=== PATIENT | female | born 1935 | race Caucasian/White ===

== ENCOUNTER 2016-09-06 07:43 | Inpatient (IN) | payer OTHER ==
[~2016-09-06] VITALS: Ht 162.6 cm; Wt 83.2 kg
[~2016-09-06 07:43] MED LIST: AMIO200T42 PO; ASPI-496 PO; ATOR20TA9 PO; B.AN1CAP PO; CEFD300C37 PO; CHOL500014 PO; CLOP75TA22 PO; FAMO20TA7 PO; INSU100V SC; INSU100V5 SQ-INSULIN; INSU100V8 SQ; LISI1TAB5 PO; RANI150T4 PO; SERT100T5 PO
[2016-09-06] MEDS ORDERED: INSU100I11 SC (08:43)
[2016-09-06] MEDS ORDERED: ONDANSETRON 2MG/ML, 2ML ONE (09:14)
[2016-09-06] MEDS ORDERED: MECLIZINE CHEWABLE 25 MG TAB ONE (09:14)
[2016-09-06] MEDS ORDERED: ASPIRIN 81 MG TABLET CHEW ONE (09:14)
[2016-09-06] MEDS ORDERED: MECLIZINE CHEWABLE 25 MG TAB PO ONE (09:30)
[2016-09-06] MEDS ORDERED: SODIUM CHLORIDE FLUSH 10ML SYR IVF ONE (09:30)
[2016-09-06] MEDS ORDERED: ONDANSETRON 2MG/ML, 2ML IVPush ONE (09:30)
[2016-09-06] MEDS ORDERED: SODIUM CHLORIDE 0.9% 1,000ML IVBOLUS ONE (09:30)
[2016-09-06] MEDS ORDERED: ASPIRIN 325 MG TABLET PO SCH (10:00)
[2016-09-06 10:47] LABS: ASPARTATE AMINO TRANSFERASE 13 U/L (15-37); BLOOD UREA NITROGEN 26 mg/dL (7-18)
[2016-09-06 10:58] LABS: IS PT STATUS REG ER OR PRE ER? YES
[2016-09-06] MEDS ORDERED: GADOBUTROL 7.5 MMOL/7.5 ML PFS ONE (13:26)
[2016-09-06 14:13] VITALS: BP 182/74
[2016-09-06] MEDS ORDERED: SODIUM CHLORIDE 0.9% 1,000 ML IV SCH (14:31)
[2016-09-06] MEDS ORDERED: POLYETHYLENE GLYCOL 17 GM PACKET PO PRN (15:00)
[2016-09-06] MEDS ORDERED: ONDANSETRON 2MG/ML, 2ML IVP PRN (15:00)
[2016-09-06] MEDS ORDERED: DOCUSATE 100 MG CAPSULE PO PRN (15:00)
[2016-09-06] MEDS ORDERED: MORPHINE SULFATE 4 MG/ML, 1ML IVPush PRN (15:00)
[2016-09-06] MEDS ORDERED: HYDROcodone/APAP 5/325 TABLET PO PRN (15:00)
[2016-09-06] MEDS ORDERED: ENALAPRILAT 1.25 MG/ML, 2ML IV PRN (15:00)
[2016-09-06 16:00] VITALS: BP 150/70
[2016-09-06] MEDS: INSULIN REGULAR 100 UNITS/ML, 3ML VIAL SQ-INSULIN SCH ×2 (17:13→22:27)
[2016-09-06 20:46] VITALS: BP 117/66
[2016-09-06] MEDS: INSULIN DETEMIR 100 UNITS/ML, PEN SQ-INSULIN SCH ×2 (21:00→22:26)
[2016-09-06] MEDS: ATORVASTATIN 20 MG TABLET PO SCH (21:13)
[2016-09-07 02:29] VITALS: BP 126/55
[2016-09-07 05:04] LABS: BLOOD UREA NITROGEN 31 mg/dL (7-18)
[2016-09-07 07:52] VITALS: BP 158/52
[2016-09-07] MEDS: INSULIN REGULAR 100 UNITS/ML, 3ML VIAL SQ-INSULIN SCH ×4 (08:29→21:21)
[2016-09-07] MEDS: FAMOTIDINE 20 MG TABLET PO SCH (08:30)
[2016-09-07] MEDS: CLOPIDOGREL 75 MG TABLET PO SCH (08:30)
[2016-09-07] MEDS: LACTOBACILLUS CHEW TABLET PO SCH (08:31)
[2016-09-07] MEDS: SENNA/DOCUSATE TABLET PO SCH (08:31)
[2016-09-07] MEDS: SERTRALINE 100MG TABLET PO SCH (08:31)
[2016-09-07] MEDS: ACETAMINOPHEN 325 MG TABLET PO PRN (08:39)
[2016-09-07] MEDS ORDERED: AMIODARONE 200 MG TABLET PO SCH (09:00)
[2016-09-07 14:00] VITALS: BP 163/68
[2016-09-07 21:06] VITALS: BP 169/67
[2016-09-07] MEDS: ATORVASTATIN 20 MG TABLET PO SCH (21:21)
[2016-09-07] MEDS: INSULIN DETEMIR 100 UNITS/ML, PEN SQ-INSULIN SCH (21:21)
[2016-09-08] VITALS (11 sets, daily range): BP systolic 152–201; BP diastolic 51–77
[2016-09-08] MEDS: INSULIN REGULAR 100 UNITS/ML, 3ML VIAL SQ-INSULIN SCH ×4 (07:25→20:11)
[2016-09-08] MEDS: hydrALAzine 20 MG/ML, 1ML IV PRN ×4 (08:25→22:22)
[2016-09-08] MEDS: LACTOBACILLUS CHEW TABLET PO SCH (08:26)
[2016-09-08] MEDS: SENNA/DOCUSATE TABLET PO SCH (08:26)
[2016-09-08] MEDS: FAMOTIDINE 20 MG TABLET PO SCH (08:26)
[2016-09-08] MEDS: CLOPIDOGREL 75 MG TABLET PO SCH (08:26)
[2016-09-08] MEDS: SERTRALINE 100MG TABLET PO SCH (08:26)
[2016-09-08] MEDS: LISINOPRIL 20 MG TABLET PO SCH (11:42)
[2016-09-08] MEDS: ATORVASTATIN 20 MG TABLET PO SCH (20:09)
[2016-09-08] MEDS: INSULIN DETEMIR 100 UNITS/ML, PEN SQ-INSULIN SCH (20:11)
[2016-09-09] VITALS (9 sets, daily range): BP systolic 149–192; BP diastolic 62–73
[2016-09-09] MEDS: ACETAMINOPHEN 325 MG TABLET PO PRN (01:19)
[2016-09-09] MEDS: INSULIN REGULAR 100 UNITS/ML, 3ML VIAL SQ-INSULIN SCH ×4 (07:00→21:00)
[2016-09-09] MEDS: LACTOBACILLUS CHEW TABLET PO SCH (08:49)
[2016-09-09] MEDS: CLOPIDOGREL 75 MG TABLET PO SCH (08:49)
[2016-09-09] MEDS: LISINOPRIL 20 MG TABLET PO SCH (08:49)
[2016-09-09] MEDS: FAMOTIDINE 20 MG TABLET PO SCH (08:49)
[2016-09-09] MEDS: SENNA/DOCUSATE TABLET PO SCH (08:49)
[2016-09-09] MEDS: SERTRALINE 100MG TABLET PO SCH (08:49)
[2016-09-09] MEDS: ENOXAPARIN 40 MG/0.4 ML SQ SCH (16:43)
[2016-09-09] MEDS: ATORVASTATIN 20 MG TABLET PO SCH (21:58)
[2016-09-09] MEDS: INSULIN DETEMIR 100 UNITS/ML, PEN SQ-INSULIN SCH (22:02)
[2016-09-10] VITALS (8 sets, daily range): BP systolic 132–187; BP diastolic 65–80
[2016-09-10] MEDS: hydrALAzine 20 MG/ML, 1ML IV PRN (01:27)
[2016-09-10 07:02] LABS: BLOOD UREA NITROGEN 27 mg/dL (7-18)
[2016-09-10 07:48] LABS: ANISOCYTOSIS 1+
[2016-09-10 07:49] LABS: ACANTHOCYTES 1+; HYPOCHROMIA 1+; LARGE PLATELETS 1+; OVALOCYTES 1+; TARGET CELLS 1+
[2016-09-10] MEDS: INSULIN REGULAR 100 UNITS/ML, 3ML VIAL SQ-INSULIN SCH ×4 (07:55→21:00)
[2016-09-10] MEDS: FAMOTIDINE 20 MG TABLET PO SCH (07:56)
[2016-09-10] MEDS: SENNA/DOCUSATE TABLET PO SCH (07:57)
[2016-09-10] MEDS: SERTRALINE 100MG TABLET PO SCH (07:57)
[2016-09-10] MEDS: LISINOPRIL 20 MG TABLET PO SCH ×2 (07:57→22:09)
[2016-09-10] MEDS: CLOPIDOGREL 75 MG TABLET PO SCH (07:57)
[2016-09-10] MEDS: LACTOBACILLUS CHEW TABLET PO SCH (07:57)
[2016-09-10 09:10] LABS: TOTAL IRON BINDING CAPACITY 391 mcg/dL (250-450)
[2016-09-10] MEDS: ENOXAPARIN 40 MG/0.4 ML SQ SCH (16:24)
[2016-09-10] MEDS: ACETAMINOPHEN 325 MG TABLET PO PRN (16:56)
[2016-09-10] MEDS: ATORVASTATIN 20 MG TABLET PO SCH (22:08)
[2016-09-10] MEDS: INSULIN DETEMIR 100 UNITS/ML, PEN SQ-INSULIN SCH (22:08)
[2016-09-11 01:51] VITALS: BP 157/54
[2016-09-11] MEDS: INSULIN REGULAR 100 UNITS/ML, 3ML VIAL SQ-INSULIN SCH (07:00)
[2016-09-11 07:28] VITALS: BP 126/70
[2016-09-11] MEDS ORDERED: HYDR-3341 PO (08:24)
[2016-09-11] MEDS ORDERED: LISI-170 PO (08:30)
[2016-09-11] MEDS: LISINOPRIL 20 MG TABLET PO SCH (08:48)
[2016-09-11] MEDS: SERTRALINE 100MG TABLET PO SCH (08:49)
[2016-09-11] MEDS: CLOPIDOGREL 75 MG TABLET PO SCH (08:49)
[2016-09-11] MEDS: LACTOBACILLUS CHEW TABLET PO SCH (08:49)
[2016-09-11] MEDS: FAMOTIDINE 20 MG TABLET PO SCH (08:49)
[2016-09-11] MEDS: SENNA/DOCUSATE TABLET PO SCH (08:50)
[2016-09-11] MEDS ORDERED: INSU100C5 SQ-INSULIN (11:51)
== END 2016-09-11 11:40 | disposition home health service (06) | DRG 92 ==
LOC: ED 09:45 → EDIP 11:48 → 5SO 14:33 → DCLOUNGE 09-11 11:10
PROVIDERS: ADMIT Hospitalist; ATTEND Family Medicine
DX: R27.0 Ataxia, unspecified (principal); I16.1 Hypertensive emergency; D68.69 Other thrombophilia; I16.0 Hypertensive urgency; G51.0 Bell's palsy; D50.9 Iron deficiency anemia, unspecified; E11.22 Type 2 diabetes mellitus with diabetic chronic kidney disease; E11.649 Type 2 diabetes mellitus with hypoglycemia without coma; E78.5 Hyperlipidemia, unspecified; I08.1 Rheumatic disorders of both mitral and tricuspid valves; R00.1 Bradycardia, unspecified; I27.2 Other secondary pulmonary hypertension; I48.0 Paroxysmal atrial fibrillation; I13.10 Hypertensive heart and chronic kidney disease without heart failure, with stage 1 through stage 4 chronic kidney disease, or unspecified chronic kidney disease; N18.3 Chronic kidney disease, stage 3 (moderate); Z66 Do not resuscitate; Z86.19 Personal history of other infectious and parasitic diseases
CPT/HCPCS: 36415; 70450; 70553; 71010; 80048; 80053; 81003; 82962; 83540; 83550; 83605; 84443; 84484; 85025; 87040; 93005; 93306; 96361; 96374; A9585; J1650; J1815; J2405; J0360; J7030

== ENCOUNTER 2016-10-09 09:48 | Emergency (ER) | payer OTHER ==
[~2016-10-09 09:48] MED LIST changes: +HYDR-3341 PO; +INSU100C5 SQ-INSULIN; +INSU100I11 SC; +LISI-170 PO
[2016-10-09] MEDS ORDERED: ONDANSETRON 2MG/ML, 2ML ONE (10:23)
[2016-10-09] MEDS ORDERED: MORPHINE SULFATE 4 MG/ML, 1ML ONE (10:23)
== END 2016-10-09 13:42 ==
LOC: ED 09:48
DX: S39.012A Strain of muscle, fascia and tendon of lower back, initial encounter (principal); M51.36 Other intervertebral disc degeneration, lumbar region; G51.0 Bell's palsy; E11.9 Type 2 diabetes mellitus without complications; I10 Essential (primary) hypertension; Z86.73 Personal history of transient ischemic attack (TIA), and cerebral infarction without residual deficits; X50.1XXA Overexertion from prolonged static or awkward postures, initial encounter; Y93.89 Activity, other specified; Y99.8 Other external cause status; Y92.89 Other specified places as the place of occurrence of the external cause
CPT/HCPCS: 72110; 99284

== ENCOUNTER 2017-01-15 18:20 | Emergency (ER) | payer OTHER ==
[~2017-01-15] VITALS: Ht 162.6 cm; Wt 80.0 kg
[~2017-01-15 18:20] MED LIST changes: -CHOL500014 PO; +CHOL500045 PO; -CLOP75TA22 PO; +CLOP75TA52 PO
[2017-01-15] MEDS ORDERED: SODIUM CHLORIDE 0.9% 1,000ML IVBOLUS ONE (19:00)
[2017-01-15] MEDS ORDERED: SODIUM CHLORIDE FLUSH 10ML SYR IVF ONE (19:00)
[2017-01-15] MEDS ORDERED: ONDANSETRON 2MG/ML, 2ML IVPush ONE (19:00)
[2017-01-15] MEDS ORDERED: ONDANSETRON 2MG/ML, 2ML ONE (19:23)
[2017-01-15] MEDS ORDERED: MORPHINE SULFATE 4 MG/ML, 1ML ONE ×2 (19:23→20:22)
[2017-01-15] MEDS: MORPHINE SULFATE 4 MG/ML, 1ML IVPush PRN ×2 (19:27→20:24)
[2017-01-15 19:37] LABS: BLOOD UREA NITROGEN 33 mg/dL (7-18)
[2017-01-15 19:41] LABS: HEMATOCRIT 26.3 % (34.6-47.8); HEMOGLOBIN 8.5 g/dL (11.7-16.4); WHITE BLOOD COUNT 7.7 x10^3/uL (3.4-10)
[2017-01-15 19:42] LABS: DIFF TOTAL CELLS COUNTED 100 CELL DIFF
[2017-01-15 20:11] LABS: ANISOCYTOSIS 2+; HYPOCHROMIA 1+; MICROCYTOSIS 1+
[2017-01-15 20:13] LABS: ACANTHOCYTES 1+; OVALOCYTES 2+
[2017-01-15 20:15] LABS: VERIFY COUNTS? YES
[2017-01-15 21:39] VITALS: BP 153/75
== END 2017-01-15 21:42 | disposition home or self-care (01) ==
LOC: ED 21:36
DX: S02.31XA Fracture of orbital floor, right side, initial encounter for closed fracture (principal); S00.11XA Contusion of right eyelid and periocular area, initial encounter; S00.83XA Contusion of other part of head, initial encounter; S69.91XA Unspecified injury of right wrist, hand and finger(s), initial encounter; G89.11 Acute pain due to trauma; E78.5 Hyperlipidemia, unspecified; E11.9 Type 2 diabetes mellitus without complications; I10 Essential (primary) hypertension; Z79.02 Long term (current) use of antithrombotics/antiplatelets; Z90.49 Acquired absence of other specified parts of digestive tract; W20.8XXA Other cause of strike by thrown, projected or falling object, initial encounter; Y93.89 Activity, other specified; Y92.096 Garden or yard of other non-institutional residence as the place of occurrence of the external cause; Y99.8 Other external cause status
CPT/HCPCS: 36415; 70450; 70486; 71101; 72125; 73030; 73110; 73130; 80048; 82040; 85025; 85610; 85730; 96361; 96374; 96375; 96376; 99285; J2405; J7030

== ENCOUNTER → 2017-01-17 | Outpatient (CLI) | payer OTHER | END | disposition home or self-care (01) | LOC: RAD 14:34 | PROVIDERS: ATTEND Family Medicine | DX: S06.9X9A Unspecified intracranial injury with loss of consciousness of unspecified duration, initial encounter (principal); M85.841 Other specified disorders of bone density and structure, right hand; J32.0 Chronic maxillary sinusitis; M19.031 Primary osteoarthritis, right wrist; M19.041 Primary osteoarthritis, right hand; I70.0 Atherosclerosis of aorta; X58.XXXA Exposure to other specified factors, initial encounter; Y93.89 Activity, other specified; Y92.89 Other specified places as the place of occurrence of the external cause; Y99.8 Other external cause status | CPT/HCPCS: 70450 ==

== ENCOUNTER 2017-08-12 18:42 | Emergency (ER) | payer OTHER ==
[~2017-08-12] VITALS: Ht 162.6 cm; Wt 73.0 kg
[2017-08-12 18:44] VITALS: BP 203/70
[2017-08-12] MEDS ORDERED: INSU100V8 SQ (19:20)
[2017-08-12] MEDS ORDERED: AMIO200T42 PO (19:20)
[2017-08-12] MEDS ORDERED: INSU100C SQ-INSULIN (19:20)
[2017-08-12] MEDS ORDERED: LISI1TAB5 PO (19:20)
[2017-08-12] MEDS ORDERED: HYDROcodone/APAP 5/325 TABLET PO ONE (21:30)
[2017-08-12] MEDS ORDERED: ONDANSETRON ODT 4 MG PO ONE (21:30)
== END 2017-08-12 21:38 | disposition home or self-care (01) ==
LOC: ED 21:32
DX: S06.0X9A Concussion with loss of consciousness of unspecified duration, initial encounter (principal); E11.9 Type 2 diabetes mellitus without complications; E78.5 Hyperlipidemia, unspecified; I10 Essential (primary) hypertension; M25.511 Pain in right shoulder; M25.561 Pain in right knee; M79.662 Pain in left lower leg; W01.198A Fall on same level from slipping, tripping and stumbling with subsequent striking against other object, initial encounter; Y93.01 Activity, walking, marching and hiking; Y92.098 Other place in other non-institutional residence as the place of occurrence of the external cause; Y99.8 Other external cause status; D68.9 Coagulation defect, unspecified; Z86.73 Personal history of transient ischemic attack (TIA), and cerebral infarction without residual deficits; Z90.49 Acquired absence of other specified parts of digestive tract; Z79.02 Long term (current) use of antithrombotics/antiplatelets
CPT/HCPCS: 70450; 72125; 99284

== ENCOUNTER → 2017-08-19 | Outpatient (CLI) | payer OTHER ==
[~2017-08-19] MED LIST changes: +INSU100C SQ-INSULIN
== END | disposition home or self-care (01) ==
LOC: RAD 16:10
PROVIDERS: ATTEND Family Medicine
DX: S09.90XD Unspecified injury of head, subsequent encounter (principal); R41.0 Disorientation, unspecified; X58.XXXD Exposure to other specified factors, subsequent encounter
CPT/HCPCS: 70450

== ENCOUNTER 2017-08-24 21:53 | Inpatient (IN) | payer OTHER ==
[~2017-08-24] VITALS: Ht 162.6 cm; Wt 85.8 kg
[2017-08-24] MEDS ORDERED: MELO15TA24 PO (22:23)
[2017-08-24] MEDS ORDERED: SULF1TAB24 PO (22:23)
[2017-08-24] MEDS ORDERED: ACETAMINOPHEN 500 MG TABLET PO ONE (22:30)
[2017-08-24] MEDS ORDERED: ACETAMINOPHEN 500 MG TABLET ONE (22:47)
[2017-08-24 23:28] LABS: BASOPHILS # (AUTO) 0.03 x10^3/uL (0-0.1); BASOPHILS % (AUTO) 0 % (0-1); EOSINOPHILS % (AUTO) 3 % (1-7); LYMPHOCYTES # (AUTO) 1.05 x10^3/uL (1-3.4); LYMPHOCYTES % (AUTO) 13 % (22-44); MD NO; MEAN CORPUSCULAR HEMOGLOBIN 28.3 pg (27.0-34.8); MEAN CORPUSCULAR HGB CONC 32.6 g/dL (32.4-35.8); MEAN CORPUSCULAR VOLUME 86.7 fL (80-100); MEAN PLATELET VOLUME 7.5 fL (7.4-10.4); MONOCYTES % (AUTO) 7 % (2-9); NEUTROPHILS # (AUTO) 6.19 x10^3/uL (1.8-6.8); NEUTROPHILS % (AUTO) 77 % (42-75); PLATELET COUNT 282 x10^3/uL (130-400); RED BLOOD COUNT 3.91 x10^6/uL (3.82-5.3); RED CELL DISTRIBUTION WIDTH 17.9 % (9.6-15.2)
[2017-08-24 23:36] LABS: ALBUMIN 3.4 g/dL (3.4-5.0); ANION GAP 6 mmol/L (5-15); CALCIUM 8.4 mg/dL (8.5-10.1); CHLORIDE 112 mmol/L (98-107)
[2017-08-24 23:37] LABS: CREATININE 1.75 mg/dL (0.55-1.02)
[2017-08-25] MEDS ORDERED: MORPHINE SULFATE 4 MG/ML, 1ML IVPush PRN (00:30)
[2017-08-25] MEDS ORDERED: SODIUM CHLORIDE 0.9% 1,000 ML IV ONE (00:30)
[2017-08-25] MEDS ORDERED: ONDANSETRON 2MG/ML, 2ML IVPush PRN (00:30)
[2017-08-25] MEDS ORDERED: ONDANSETRON ODT 4 MG ONE (00:55)
[2017-08-25] MEDS ORDERED: MORPHINE SULFATE 4 MG/ML, 1ML ONE (00:55)
[2017-08-25] MEDS ORDERED: ACETAMINOPHEN 325 MG TABLET PO PRN (01:00)
[2017-08-25] MEDS ORDERED: BISACODYL 10 MG SUPP PR PRN (01:00)
[2017-08-25] MEDS ORDERED: POLYETHYLENE GLYCOL 17 GM PACKET PO PRN (01:00)
[2017-08-25] MEDS: ONDANSETRON ODT 4 MG PO PRN (01:09)
[2017-08-25 01:25] LABS: HEMOGLOBIN A1C 7.2 % (4.2-6.3)
[2017-08-25] MEDS: ATORVASTATIN 20 MG TABLET PO SCH ×2 (01:49→21:09)
[2017-08-25] MEDS: HEPARIN 5,000 UNITS/ML, 1ML SQ SCH ×3 (01:59→17:34)
[2017-08-25] MEDS: SODIUM CHLORIDE 0.9% 1,000 ML IV SCH ×3 (01:59→21:30)
[2017-08-25] MEDS: INSULIN GLARGINE 100 UNITS/ML, PEN SQ-INSULIN SCH ×2 (02:16→21:10)
[2017-08-25 02:18] VITALS: BP_SYST 114; BP_SYST 164; BP_DIAS 72
[2017-08-25 07:54] VITALS: BP 125/61
[2017-08-25] MEDS: SULFAMETH./TRIMETHOPRIM DS 800MG/160MG TABLET PO SCH ×2 (08:16→21:09)
[2017-08-25] MEDS: CLOPIDOGREL 75 MG TABLET PO SCH (08:18)
[2017-08-25] MEDS: AMIODARONE 200 MG TABLET PO SCH (08:18)
[2017-08-25] MEDS: SENNA/DOCUSATE TABLET PO SCH (08:18)
[2017-08-25] MEDS: AMLODIPINE 5 MG TABLET PO SCH ×2 (08:18→21:09)
[2017-08-25] MEDS: SERTRALINE 100MG TABLET PO SCH (08:18)
[2017-08-25] MEDS ORDERED: MELOXICAM 15 MG TABLET PO SCH (09:00)
[2017-08-25 09:39] LABS: ANION GAP 7 mmol/L (5-15); CALCIUM 7.9 mg/dL (8.5-10.1); CHLORIDE 113 mmol/L (98-107); CREATININE 1.71 mg/dL (0.55-1.02)
[2017-08-25] MEDS: OXYcodone IR 5MG TABLET PO PRN ×3 (09:50→21:10)
[2017-08-25] MEDS ORDERED: SODIUM POLYSTYRENE SULFONATE ORAL SUSP PO ONE (12:00)
[2017-08-25 13:00] VITALS: BP 116/64
[2017-08-25] MEDS ORDERED: PHARMACY MAY ADJ FOR RENAL FX MC PRN (15:30)
[2017-08-25 18:43] VITALS: BP 145/56
[2017-08-26] MEDS: HEPARIN 5,000 UNITS/ML, 1ML SQ SCH ×3 (01:44→16:50)
[2017-08-26] MEDS: OXYcodone IR 5MG TABLET PO PRN (01:44)
[2017-08-26 02:32] VITALS: BP 144/58
[2017-08-26 05:10] LABS: BASOPHILS # (AUTO) 0.03 x10^3/uL (0-0.1); BASOPHILS % (AUTO) 1 % (0-1); EOSINOPHILS # (AUTO) 0.21 x10^3/uL (0-0.4); EOSINOPHILS % (AUTO) 4 % (1-7); LYMPHOCYTES # (AUTO) 1.24 x10^3/uL (1-3.4); LYMPHOCYTES % (AUTO) 22 % (22-44); MD NO; MEAN CORPUSCULAR HEMOGLOBIN 29.3 pg (27.0-34.8); MEAN CORPUSCULAR HGB CONC 33.2 g/dL (32.4-35.8); MEAN CORPUSCULAR VOLUME 88.3 fL (80-100); MEAN PLATELET VOLUME 7.7 fL (7.4-10.4); MONOCYTES # (AUTO) 0.45 x10^3/uL (0.2-0.8); MONOCYTES % (AUTO) 8 % (2-9); NEUTROPHILS # (AUTO) 3.72 x10^3/uL (1.8-6.8); NEUTROPHILS % (AUTO) 66 % (42-75); PLATELET COUNT 238 x10^3/uL (130-400); RED BLOOD COUNT 3.29 x10^6/uL (3.82-5.3); RED CELL DISTRIBUTION WIDTH 18.5 % (9.6-15.2)
[2017-08-26 05:15] LABS: ALANINE AMINOTRANSFERASE 33 U/L (12-78); ALBUMIN 2.9 g/dL (3.4-5.0); ANION GAP 7 mmol/L (5-15); CALCIUM 7.5 mg/dL (8.5-10.1); CHLORIDE 115 mmol/L (98-107); CREATININE 1.63 mg/dL (0.55-1.02)
[2017-08-26 05:26] LABS: ALKALINE PHOSPHATASE 66 U/L (45-117); BILIRUBIN,TOTAL 0.4 mg/dL (0.2-1.0); TOTAL PROTEIN 5.7 g/dL (6.4-8.2)
[2017-08-26 07:22] VITALS: BP 151/65
[2017-08-26] MEDS: SENNA/DOCUSATE TABLET PO SCH (09:00)
[2017-08-26] MEDS: SULFAMETH./TRIMETHOPRIM DS 800MG/160MG TABLET PO SCH (09:16)
[2017-08-26] MEDS: SODIUM CHLORIDE 0.9% 1,000 ML IV SCH (09:16)
[2017-08-26] MEDS: SERTRALINE 100MG TABLET PO SCH (09:17)
[2017-08-26] MEDS: AMIODARONE 200 MG TABLET PO SCH (09:17)
[2017-08-26] MEDS: CLOPIDOGREL 75 MG TABLET PO SCH (09:17)
[2017-08-26] MEDS: AMLODIPINE 5 MG TABLET PO SCH ×2 (09:17→21:24)
[2017-08-26] MEDS: SODIUM CHLORIDE 0.45% 1,000 ML IV SCH (10:58)
[2017-08-26] MEDS ORDERED: DEXTROSE 4 GM TAB.CHEW PO PRN (13:00)
[2017-08-26] MEDS ORDERED: DEXTROSE 50%, 50ML SYRINGE IVPush PRN (13:00)
[2017-08-26] MEDS ORDERED: GLUCAGON 1 MG IM PRN (13:00)
[2017-08-26 13:45] VITALS: BP 131/65
[2017-08-26] MEDS: INSULIN LISPRO 100 UNITS/ML, PEN SQ-INSULIN SCH ×2 (16:00→21:00)
[2017-08-26] MEDS: ONDANSETRON ODT 4 MG PO PRN (16:50)
[2017-08-26 18:51] VITALS: BP 133/64
[2017-08-26] MEDS ORDERED: INSULIN GLARGINE 100 UNITS/ML, PEN SQ-INSULIN SCH (21:00)
[2017-08-26] MEDS: SODIUM CHLORIDE FLUSH 10ML SYR IVF SCH (21:24)
[2017-08-26] MEDS: ATORVASTATIN 20 MG TABLET PO SCH (21:25)
[2017-08-27] MEDS: SODIUM CHLORIDE 0.45% 1,000 ML IV SCH (01:06)
[2017-08-27 01:33] VITALS: BP 128/64
[2017-08-27] MEDS: HEPARIN 5,000 UNITS/ML, 1ML SQ SCH ×2 (05:03→13:00)
[2017-08-27 05:24] LABS: CHLORIDE 113 mmol/L (98-107)
[2017-08-27 05:26] LABS: BASOPHILS # (AUTO) 0.06 x10^3/uL (0-0.1); BASOPHILS % (AUTO) 1 % (0-1); EOSINOPHILS # (AUTO) 0.21 x10^3/uL (0-0.4); EOSINOPHILS % (AUTO) 3 % (1-7); LYMPHOCYTES # (AUTO) 1.48 x10^3/uL (1-3.4); LYMPHOCYTES % (AUTO) 20 % (22-44); MD NO; MEAN CORPUSCULAR HEMOGLOBIN 29.8 pg (27.0-34.8); MEAN CORPUSCULAR VOLUME 87.7 fL (80-100); MEAN PLATELET VOLUME 7.4 fL (7.4-10.4); MONOCYTES # (AUTO) 0.53 x10^3/uL (0.2-0.8); MONOCYTES % (AUTO) 7 % (2-9); NEUTROPHILS # (AUTO) 4.99 x10^3/uL (1.8-6.8); NEUTROPHILS % (AUTO) 69 % (42-75); PLATELET COUNT 248 x10^3/uL (130-400); RED BLOOD COUNT 3.53 x10^6/uL (3.82-5.3); RED CELL DISTRIBUTION WIDTH 16.7 % (9.6-15.2)
[2017-08-27 05:33] LABS: ANION GAP 8 mmol/L (5-15); CALCIUM 8.3 mg/dL (8.5-10.1); CREATININE 1.49 mg/dL (0.55-1.02)
[2017-08-27 06:26] VITALS: BP 118/50
[2017-08-27] MEDS: INSULIN LISPRO 100 UNITS/ML, PEN SQ-INSULIN SCH ×2 (07:00→11:00)
[2017-08-27] MEDS ORDERED: GABAPENTIN 100 MG CAPSULE PO SCH (09:00)
[2017-08-27] MEDS: SERTRALINE 100MG TABLET PO SCH (09:26)
[2017-08-27] MEDS: AMLODIPINE 5 MG TABLET PO SCH (09:27)
[2017-08-27] MEDS: AMIODARONE 200 MG TABLET PO SCH (09:27)
[2017-08-27] MEDS: CLOPIDOGREL 75 MG TABLET PO SCH (09:27)
[2017-08-27] MEDS: SODIUM CHLORIDE FLUSH 10ML SYR IVF SCH (09:33)
[2017-08-27] MEDS: SENNA/DOCUSATE TABLET PO SCH (09:40)
[2017-08-27] MEDS ORDERED: GABA-826 PO ×2 (09:59→12:37)
[2017-08-27] MEDS ORDERED: ACET325T14 PO (09:59)
[2017-08-27] MEDS ORDERED: AMLO5TAB2 PO ×2 (09:59→12:37)
[2017-08-27 12:32] VITALS: BP 138/49
== END 2017-08-27 14:57 | disposition home or self-care (01) | DRG 77 ==
LOC: ED 23:19 → EDIP 08-25 00:30 → 4WST 08-25 01:28 → DCLOUNGE 08-27 14:41
PROVIDERS: ADMIT Internal Medicine; ATTEND Internal Medicine
DX: I67.4 Hypertensive encephalopathy (principal); N17.0 Acute kidney failure with tubular necrosis; E87.2 Acidosis; D68.69 Other thrombophilia; E11.21 Type 2 diabetes mellitus with diabetic nephropathy; E87.5 Hyperkalemia; E11.22 Type 2 diabetes mellitus with diabetic chronic kidney disease; N18.3 Chronic kidney disease, stage 3 (moderate); G45.9 Transient cerebral ischemic attack, unspecified; I48.2 Chronic atrial fibrillation; G51.0 Bell's palsy; N28.1 Cyst of kidney, acquired; W18.39XA Other fall on same level, initial encounter; D64.9 Anemia, unspecified; W18.30XA Fall on same level, unspecified, initial encounter; Y93.89 Activity, other specified; Y92.89 Other specified places as the place of occurrence of the external cause; Y99.8 Other external cause status; E78.5 Hyperlipidemia, unspecified; I12.9 Hypertensive chronic kidney disease with stage 1 through stage 4 chronic kidney disease, or unspecified chronic kidney disease; I25.10 Atherosclerotic heart disease of native coronary artery without angina pectoris; M19.019 Primary osteoarthritis, unspecified shoulder; M50.30 Other cervical disc degeneration, unspecified cervical region; M75.100 Unspecified rotator cuff tear or rupture of unspecified shoulder, not specified as traumatic; Z79.4 Long term (current) use of insulin; Z82.3 Family history of stroke; Z83.3 Family history of diabetes mellitus; Z95.5 Presence of coronary angioplasty implant and graft; Z96.659 Presence of unspecified artificial knee joint; R29.6 Repeated falls
CPT/HCPCS: 36415; 70450; 72125; 76770; 80048; 80053; 82040; 82550; 82962; 83036; 83735; 84100; 84443; 85025; 93005; 96374; J1644; Q0162; J1815; J7030

== ENCOUNTER 2017-11-14 12:55 | Inpatient (IN) | payer OTHER ==
[~2017-11-14] VITALS: Ht 162.6 cm; Wt 76.3 kg
[~2017-11-14 12:55] MED LIST changes: +ACET325T14 PO; +AMLO5TAB2 PO; +GABA-826 PO; +MELO15TA24 PO; +SULF1TAB24 PO
[2017-11-14 14:23] LABS: BASOPHILS # (AUTO) 0.05 x10^3/uL (0-0.1); BASOPHILS % (AUTO) 1 % (0-1); EOSINOPHILS # (AUTO) 0.11 x10^3/uL (0-0.4); EOSINOPHILS % (AUTO) 2 % (1-7); LYMPHOCYTES # (AUTO) 1.12 x10^3/uL (1-3.4); LYMPHOCYTES % (AUTO) 15 % (22-44); MD NO; MEAN CORPUSCULAR HEMOGLOBIN 30.2 pg (27.0-34.8); MEAN CORPUSCULAR HGB CONC 32.8 g/dL (32.4-35.8); MEAN CORPUSCULAR VOLUME 92.3 fL (80-100); MEAN PLATELET VOLUME 7.6 fL (7.4-10.4); MONOCYTES % (AUTO) 7 % (2-9); NEUTROPHILS # (AUTO) 5.83 x10^3/uL (1.8-6.8); NEUTROPHILS % (AUTO) 77 % (42-75); PLATELET COUNT 325 x10^3/uL (130-400); RED BLOOD COUNT 3.95 x10^6/uL (3.82-5.3); RED CELL DISTRIBUTION WIDTH 14.3 % (9.6-15.2)
[2017-11-14 14:34] LABS: ALANINE AMINOTRANSFERASE 50 U/L (12-78); ALBUMIN 3.9 g/dL (3.4-5.0); ANION GAP 8 mmol/L (5-15); CALCIUM 8.4 mg/dL (8.5-10.1); CHLORIDE 110 mmol/L (98-107); CREATININE 2.19 mg/dL (0.55-1.02)
[2017-11-14 14:49] LABS: ALKALINE PHOSPHATASE 98 U/L (45-117); BILIRUBIN,TOTAL 0.2 mg/dL (0.2-1.0); TOTAL PROTEIN 7.3 g/dL (6.4-8.2)
[2017-11-14] MEDS ORDERED: SODIUM CHLORIDE 0.9% 1,000 ML IV ONE (14:52)
[2017-11-14] MEDS ORDERED: SODIUM CHLORIDE FLUSH 10ML SYR IVF ONE (15:00)
[2017-11-14] MEDS ORDERED: SODIUM CHLORIDE 0.9% 1,000ML IVBOLUS ONE (15:00)
[2017-11-14] MEDS ORDERED: SODIUM POLY SULFONATE UDC 15 GM/60 ML PO ONE (15:00)
[2017-11-14] MEDS ORDERED: INSULIN REGULAR 100 UNITS/ML, 3ML VIAL IVPush ONE (15:00)
[2017-11-14] MEDS ORDERED: DEXTROSE 50%, 50ML SYRINGE IVPush ONE ×2 (15:00→18:00)
[2017-11-14] MEDS ORDERED: CALCIUM CHLORIDE 10%, 10ML SYR IVPush ONE (15:00)
[2017-11-14] MEDS ORDERED: SODIUM BICARB 8.4%, 50ML SYRINGE IVPush ONE (15:00)
[2017-11-14] MEDS ORDERED: CALCIUM CHLORIDE 10%, 10ML SYR ONE (15:15)
[2017-11-14] MEDS ORDERED: DEXTROSE 50%, 50ML SYRINGE ONE (15:15)
[2017-11-14] MEDS ORDERED: SODIUM BICARB 8.4%, 50ML SYRINGE ONE (15:15)
[2017-11-14] MEDS ORDERED: INSULIN REGULAR 100 UNITS/ML, 3ML VIAL ONE (15:16)
[2017-11-14] MEDS ORDERED: hydrALAzine 20 MG/ML, 1ML IVPush PRN (16:00)
[2017-11-14] MEDS ORDERED: LABETALOL 5MG/ML, 20ML IVPush PRN (16:00)
[2017-11-14] MEDS ORDERED: ACETAMINOPHEN 325 MG TABLET PO PRN (16:00)
[2017-11-14] MEDS ORDERED: SODIUM POLY SULFONATE UDC 15 GM/60 ML ONE ×2 (16:18→16:21)
[2017-11-14 17:12] VITALS: BP 148/65
[2017-11-14] MEDS: SODIUM CHLORIDE 0.9% 1,000 ML IV SCH (17:26)
[2017-11-14] MEDS: HEPARIN 5,000 UNITS/ML, 1ML SQ SCH (18:29)
[2017-11-14 18:47] LABS: ANION GAP 6 mmol/L (5-15); CALCIUM 8.6 mg/dL (8.5-10.1); CHLORIDE 112 mmol/L (98-107); CREATININE 1.97 mg/dL (0.55-1.02)
[2017-11-14 19:53] VITALS: BP 142/58
[2017-11-14] MEDS ORDERED: DEXTROSE 4 GM TAB.CHEW PO PRN (22:00)
[2017-11-14] MEDS ORDERED: TEMPLATE NON-FORMULARY MED. (Gabapentin 100 MG) PO SCH (22:00)
[2017-11-14] MEDS: INSULIN GLARGINE 100 UNITS/ML, PEN SQ-INSULIN SCH (22:00)
[2017-11-14] MEDS ORDERED: DEXTROSE 50%, 50ML SYRINGE IVPush PRN (22:00)
[2017-11-14] MEDS ORDERED: GLUCAGON 1 MG IM PRN (22:00)
[2017-11-14 22:26] LABS: MICROSCOPIC NOT IND
[2017-11-14 22:38] LABS: HEMOGLOBIN A1C 6.6 % (4.2-6.3)
[2017-11-14 22:39] LABS: CULTURE INDICATED? NO
[2017-11-14 23:10] LABS: CREATININE,URINE RANDOM 29.5 mg/dL
[2017-11-15] MEDS: ATORVASTATIN 20 MG TABLET PO SCH ×2 (00:34→20:50)
[2017-11-15] MEDS: HEPARIN 5,000 UNITS/ML, 1ML SQ SCH ×3 (00:34→16:59)
[2017-11-15] MEDS: SODIUM CHLORIDE 0.9% 1,000 ML IV SCH ×2 (00:45→16:59)
[2017-11-15 01:09] VITALS: BP 151/63
[2017-11-15 05:27] LABS: CHLORIDE 116 mmol/L (98-107)
[2017-11-15 05:28] LABS: BASOPHILS # (AUTO) 0.03 x10^3/uL (0-0.1); BASOPHILS % (AUTO) 1 % (0-1); EOSINOPHILS # (AUTO) 0.15 x10^3/uL (0-0.4); EOSINOPHILS % (AUTO) 3 % (1-7); LYMPHOCYTES # (AUTO) 1.28 x10^3/uL (1-3.4); LYMPHOCYTES % (AUTO) 24 % (22-44); MD NO; MEAN CORPUSCULAR HEMOGLOBIN 30.6 pg (27.0-34.8); MEAN CORPUSCULAR HGB CONC 33.2 g/dL (32.4-35.8); MEAN CORPUSCULAR VOLUME 92.2 fL (80-100); MEAN PLATELET VOLUME 7.7 fL (7.4-10.4); MONOCYTES # (AUTO) 0.42 x10^3/uL (0.2-0.8); MONOCYTES % (AUTO) 8 % (2-9); NEUTROPHILS # (AUTO) 3.43 x10^3/uL (1.8-6.8); NEUTROPHILS % (AUTO) 65 % (42-75); PLATELET COUNT 293 x10^3/uL (130-400); RED BLOOD COUNT 3.69 x10^6/uL (3.82-5.3); RED CELL DISTRIBUTION WIDTH 14.4 % (9.6-15.2)
[2017-11-15 05:42] LABS: ALANINE AMINOTRANSFERASE 44 U/L (12-78); ALBUMIN 3.3 g/dL (3.4-5.0); ALKALINE PHOSPHATASE 83 U/L (45-117); ANION GAP 5 mmol/L (5-15); BILIRUBIN,TOTAL 0.4 mg/dL (0.2-1.0); CALCIUM 8.3 mg/dL (8.5-10.1); CREATININE 1.61 mg/dL (0.55-1.02); TOTAL PROTEIN 6.3 g/dL (6.4-8.2)
[2017-11-15 06:06] LABS: HEMOGLOBIN A1C 6.9 % (4.2-6.3)
[2017-11-15] MEDS: INSULIN LISPRO 100 UNITS/ML, PEN SQ-INSULIN SCH ×4 (07:00→21:05)
[2017-11-15] MEDS ORDERED: SODIUM POLYSTYRENE SULFONATE ORAL SUSP PO ONE (08:00)
[2017-11-15 08:19] VITALS: BP 165/68
[2017-11-15] MEDS: SODIUM CHLORIDE FLUSH 10ML SYR IVF SCH ×2 (09:00→20:52)
[2017-11-15] MEDS: GABAPENTIN 100 MG CAPSULE PO SCH ×3 (09:00→20:51)
[2017-11-15] MEDS ORDERED: DEXTROSE 50%, 50ML SYRINGE IVPush STA (09:15)
[2017-11-15] MEDS ORDERED: INSULIN REGULAR 100 UNITS/ML, 3ML VIAL IVPush STA (09:15)
[2017-11-15] MEDS: AMIODARONE 200 MG TABLET PO SCH (09:30)
[2017-11-15] MEDS: SERTRALINE 100MG TABLET PO SCH (09:30)
[2017-11-15] MEDS: CLOPIDOGREL 75 MG TABLET PO SCH (09:30)
[2017-11-15] MEDS: SODIUM BICARBONATE 650 MG TABLET PO SCH ×2 (09:36→20:51)
[2017-11-15 13:43] VITALS: BP 145/59
[2017-11-15 16:27] LABS: ALBUMIN 3.4 g/dL (3.4-5.0); ANION GAP 6 mmol/L (5-15); CALCIUM 8.2 mg/dL (8.5-10.1); CHLORIDE 113 mmol/L (98-107); CREATININE 1.84 mg/dL (0.55-1.02)
[2017-11-15] MEDS: INSULIN GLARGINE 100 UNITS/ML, PEN SQ-INSULIN SCH (20:52)
[2017-11-15 21:49] VITALS: BP 146/76
[2017-11-16] MEDS: HEPARIN 5,000 UNITS/ML, 1ML SQ SCH ×3 (00:16→16:00)
[2017-11-16] MEDS: SODIUM CHLORIDE 0.9% 1,000 ML IV SCH ×2 (00:17→09:04)
[2017-11-16 02:36] VITALS: BP 126/53
[2017-11-16 05:16] LABS: ALBUMIN 3.1 g/dL (3.4-5.0); ANION GAP 6 mmol/L (5-15); CALCIUM 8.2 mg/dL (8.5-10.1); CHLORIDE 115 mmol/L (98-107)
[2017-11-16 05:18] LABS: CREATININE 1.53 mg/dL (0.55-1.02)
[2017-11-16 07:20] VITALS: BP 146/68
[2017-11-16] MEDS: AMIODARONE 200 MG TABLET PO SCH (08:56)
[2017-11-16] MEDS: CLOPIDOGREL 75 MG TABLET PO SCH (09:03)
[2017-11-16] MEDS: GABAPENTIN 100 MG CAPSULE PO SCH ×2 (09:03→16:20)
[2017-11-16] MEDS: SERTRALINE 100MG TABLET PO SCH (09:03)
[2017-11-16] MEDS: INSULIN LISPRO 100 UNITS/ML, PEN SQ-INSULIN SCH ×3 (09:05→16:00)
[2017-11-16] MEDS: SODIUM CHLORIDE FLUSH 10ML SYR IVF SCH (09:06)
[2017-11-16] MEDS: SODIUM BICARBONATE 650 MG TABLET PO SCH (09:13)
[2017-11-16] MEDS ORDERED: LEVO25TA2 PO (10:39)
[2017-11-16] MEDS ORDERED: HYDR-3341 PO (10:39)
[2017-11-16] MEDS ORDERED: SODI650T PO (10:40)
[2017-11-16 13:38] VITALS: BP 139/63
[2017-11-17] MEDS ORDERED: LEVOTHYROXINE 25 MCG TABLET PO SCH (06:00)
== END 2017-11-16 16:55 | disposition home or self-care (01) | DRG 640 ==
LOC: ED 15:14 → EDIP 15:15 → ED 17:06 → 4WST 17:18
PROVIDERS: ADMIT Hospitalist; ATTEND Hospitalist
DX: E87.5 Hyperkalemia (principal); N17.0 Acute kidney failure with tubular necrosis; D68.69 Other thrombophilia; E11.65 Type 2 diabetes mellitus with hyperglycemia; E03.9 Hypothyroidism, unspecified; E78.5 Hyperlipidemia, unspecified; Z96.659 Presence of unspecified artificial knee joint; Z53.20 Procedure and treatment not carried out because of patient's decision for unspecified reasons; R29.6 Repeated falls; M48.02 Spinal stenosis, cervical region; M47.812 Spondylosis without myelopathy or radiculopathy, cervical region; I11.9 Hypertensive heart disease without heart failure; I25.10 Atherosclerotic heart disease of native coronary artery without angina pectoris; Z66 Do not resuscitate; I48.2 Chronic atrial fibrillation; Z79.02 Long term (current) use of antithrombotics/antiplatelets; Z79.890 Hormone replacement therapy; Z79.4 Long term (current) use of insulin; Z95.5 Presence of coronary angioplasty implant and graft; Z86.73 Personal history of transient ischemic attack (TIA), and cerebral infarction without residual deficits; Z79.899 Other long term (current) drug therapy
CPT/HCPCS: 36415; 71045; 72141; 76770; 80048; 80053; 80069; 81003; 82306; 82436; 82570; 82607; 82962; 83036; 83735; 84100; 84133; 84300; 84443; 85025; 93005; 96374; 96375; J1644; J1815; J7030

== ENCOUNTER → 2017-12-09 | Outpatient (CLI) | payer OTHER ==
[~2017-12-09] MED LIST changes: +LEVO25TA2 PO; +SODI650T PO
== END | disposition home or self-care (01) ==
LOC: CVU 09:41
PROVIDERS: ATTEND Internal Medicine Cardiovascular Disease
DX: I65.23 Occlusion and stenosis of bilateral carotid arteries (principal); I10 Essential (primary) hypertension; E11.9 Type 2 diabetes mellitus without complications; I63.9 Cerebral infarction, unspecified; G51.0 Bell's palsy
CPT/HCPCS: 93880

== ENCOUNTER → 2018-01-02 | Outpatient (CLI) | payer OTHER | END | disposition home or self-care (01) | LOC: RAD 12:34 | PROVIDERS: ATTEND Registered Nurse | DX: M50.01 Cervical disc disorder with myelopathy, high cervical region (principal); G31.89 Other specified degenerative diseases of nervous system; M48.02 Spinal stenosis, cervical region | CPT/HCPCS: 70551; 72141 ==

== ENCOUNTER → 2018-02-10 | Outpatient (CLI) | payer OTHER ==
[~2018-02-10] MED LIST changes: -AMLO5TAB2 PO; +AMLO5TAB7 PO
== END | disposition home or self-care (01) ==
LOC: RAD 09:34
PROVIDERS: ATTEND Family Medicine
DX: M51.36 Other intervertebral disc degeneration, lumbar region (principal); M25.851 Other specified joint disorders, right hip
CPT/HCPCS: 72110

== ENCOUNTER → 2018-02-14 | Outpatient (CLI) | payer OTHER | END | disposition home or self-care (01) | LOC: CARD 10:20 | PROVIDERS: ATTEND Registered Nurse | DX: G56.03 Carpal tunnel syndrome, bilateral upper limbs (principal); R20.0 Anesthesia of skin; E11.9 Type 2 diabetes mellitus without complications | CPT/HCPCS: 95886; 95908 ==

== ENCOUNTER 2018-03-12 18:12 | Inpatient (IN) | payer OTHER ==
[~2018-03-12] VITALS: Ht 162.6 cm; Wt 85.3 kg
[2018-03-12] MEDS ORDERED: ALBUTEROL/IPRATROPIUM 2.5MG/0.5MG, 3 ML NPPB ONE (18:30)
[2018-03-12 19:15] LABS: BASOPHILS # (AUTO) 0.03 x10^3/uL (0-0.1); BASOPHILS % (AUTO) 1 % (0-1); EOSINOPHILS # (AUTO) 0.15 x10^3/uL (0-0.4); EOSINOPHILS % (AUTO) 2 % (1-7); LYMPHOCYTES # (AUTO) 1.27 x10^3/uL (1-3.4); LYMPHOCYTES % (AUTO) 19 % (22-44); MD NO; MEAN CORPUSCULAR HEMOGLOBIN 30.8 pg (27.0-34.8); MEAN CORPUSCULAR HGB CONC 33.5 g/dL (32.4-35.8); MEAN CORPUSCULAR VOLUME 92.1 fL (80-100); MEAN PLATELET VOLUME 7.8 fL (7.4-10.4); MONOCYTES # (AUTO) 0.54 x10^3/uL (0.2-0.8); MONOCYTES % (AUTO) 8 % (2-9); NEUTROPHILS # (AUTO) 4.81 x10^3/uL (1.8-6.8); NEUTROPHILS % (AUTO) 71 % (42-75); PLATELET COUNT 355 x10^3/uL (130-400); RED BLOOD COUNT 3.73 x10^6/uL (3.82-5.3); RED CELL DISTRIBUTION WIDTH 14.5 % (9.6-15.2)
[2018-03-12 19:17] LABS: ALANINE AMINOTRANSFERASE 29 U/L (12-78); ALBUMIN 3.6 g/dL (3.4-5.0); ANION GAP 7 mmol/L (5-15); CALCIUM 8.4 mg/dL (8.5-10.1); CHLORIDE 114 mmol/L (98-107); CREATININE 1.67 mg/dL (0.55-1.02)
[2018-03-12 19:20] LABS: ALKALINE PHOSPHATASE 81 U/L (45-117); BILIRUBIN,TOTAL 0.4 mg/dL (0.2-1.0); TOTAL PROTEIN 7.3 g/dL (6.4-8.2); TROPONIN I < 0.015 ng/mL (0.000-0.045)
[2018-03-12] MEDS ORDERED: AZITHROMYCIN 500 MG in SODIUM CHLORIDE 0.9% 250 ML IV ONE (20:30)
[2018-03-12] MEDS ORDERED: FUROSEMIDE 40 MG/4 ML IV ONE (20:30)
[2018-03-12] MEDS ORDERED: CEFTRIAXONE PMX 1GM/50ML 50 ML ONE (20:36)
[2018-03-12] MEDS ORDERED: FUROSEMIDE 40 MG/4 ML ONE (20:36)
[2018-03-12] MEDS: CEFTRIAXONE 1,000 MG in SODIUM CHLORIDE 0.9% 50 ML IVPB ONE ×2 (20:39→21:10)
[2018-03-12 20:52] LABS: CULTURE INDICATED? YES; MICROSCOPIC INDICATED
[2018-03-12] MEDS ORDERED: CHOL500045 PO (21:30)
[2018-03-12] MEDS ORDERED: IRON1TAB37 PO (21:30)
[2018-03-12] MEDS ORDERED: FURO-92 PO (21:30)
[2018-03-12 22:33] VITALS: BP 158/68
[2018-03-12] MEDS ORDERED: ONDANSETRON ODT 4 MG PO PRN (23:00)
[2018-03-12] MEDS ORDERED: DOCUSATE 100 MG CAPSULE PO PRN (23:00)
[2018-03-12] MEDS ORDERED: hydrALAzine 20 MG/ML, 1ML IVPush PRN (23:00)
[2018-03-12] MEDS ORDERED: ACETAMINOPHEN 325 MG TABLET PO PRN (23:00)
[2018-03-13 01:39] VITALS: BP 147/62
[2018-03-13] MEDS: FERROUS SULFATE 325 MG TABLET PO SCH ×2 (01:44→21:49)
[2018-03-13] MEDS: ATORVASTATIN 20 MG TABLET PO SCH ×2 (01:44→21:48)
[2018-03-13] MEDS: GABAPENTIN 100 MG CAPSULE PO SCH ×4 (01:44→21:48)
[2018-03-13 05:40] LABS: BASOPHILS # (AUTO) 0.03 x10^3/uL (0-0.1); BASOPHILS % (AUTO) 1 % (0-1); EOSINOPHILS # (AUTO) 0.09 x10^3/uL (0-0.4); EOSINOPHILS % (AUTO) 1 % (1-7); LYMPHOCYTES # (AUTO) 0.91 x10^3/uL (1-3.4); LYMPHOCYTES % (AUTO) 13 % (22-44); MD NO; MEAN CORPUSCULAR HEMOGLOBIN 30.9 pg (27.0-34.8); MEAN CORPUSCULAR HGB CONC 33.5 g/dL (32.4-35.8); MEAN CORPUSCULAR VOLUME 92.3 fL (80-100); MONOCYTES # (AUTO) 0.53 x10^3/uL (0.2-0.8); MONOCYTES % (AUTO) 8 % (2-9); NEUTROPHILS # (AUTO) 5.38 x10^3/uL (1.8-6.8); NEUTROPHILS % (AUTO) 77 % (42-75); PLATELET COUNT 316 x10^3/uL (130-400); RED BLOOD COUNT 3.31 x10^6/uL (3.82-5.3); RED CELL DISTRIBUTION WIDTH 14.6 % (9.6-15.2)
[2018-03-13 05:47] LABS: ANION GAP 8 mmol/L (5-15); CALCIUM 8.4 mg/dL (8.5-10.1); CHLORIDE 113 mmol/L (98-107)
[2018-03-13 05:48] LABS: CREATININE 1.51 mg/dL (0.55-1.02)
[2018-03-13] MEDS: LEVOTHYROXINE 25 MCG TABLET PO SCH (05:59)
[2018-03-13] MEDS: INSULIN LISPRO 100 UNITS/ML, PEN SQ-INSULIN SCH ×4 (07:00→21:00)
[2018-03-13 07:15] VITALS: BP 131/74
[2018-03-13] MEDS: AMIODARONE 200 MG TABLET PO SCH (09:00)
[2018-03-13] MEDS: CLOPIDOGREL 75 MG TABLET PO SCH (10:17)
[2018-03-13] MEDS: FUROSEMIDE 20 MG/2 ML IV SCH (10:17)
[2018-03-13] MEDS: SERTRALINE 100MG TABLET PO SCH (10:18)
[2018-03-13] MEDS: CHOLECALCIFEROL 5,000u TAB PO SCH (10:18)
[2018-03-13 14:45] VITALS: BP 130/68
[2018-03-13 19:29] VITALS: BP 137/65
[2018-03-13] MEDS ORDERED: AZITHROMYCIN 500 MG in SODIUM CHLORIDE 0.9% 250 ML IV SCH (20:30)
[2018-03-13] MEDS ORDERED: CEFTRIAXONE PMX 1GM/50ML 50 ML IV SCH (20:30)
[2018-03-13] MEDS ORDERED: ASCORBIC ACID 500 MG TABLET PO SCH (21:00)
[2018-03-13] MEDS ORDERED: INSULIN GLARGINE 100 UNITS/ML, PEN SQ-INSULIN SCH (21:00)
[2018-03-14 03:18] VITALS: BP 150/56
[2018-03-14] MEDS: LEVOTHYROXINE 25 MCG TABLET PO SCH (04:58)
[2018-03-14] MEDS: INSULIN LISPRO 100 UNITS/ML, PEN SQ-INSULIN SCH ×3 (07:00→16:05)
[2018-03-14 07:55] VITALS: BP 125/67
[2018-03-14] MEDS: AMIODARONE 200 MG TABLET PO SCH (09:00)
[2018-03-14] MEDS: FUROSEMIDE 20 MG/2 ML IV SCH (09:01)
[2018-03-14] MEDS: CLOPIDOGREL 75 MG TABLET PO SCH (09:02)
[2018-03-14] MEDS: SERTRALINE 100MG TABLET PO SCH (09:02)
[2018-03-14] MEDS: GABAPENTIN 100 MG CAPSULE PO SCH ×2 (09:02→16:04)
[2018-03-14] MEDS: CHOLECALCIFEROL 5,000u TAB PO SCH (09:02)
[2018-03-14] MEDS ORDERED: AZIT500T5 PO (12:46)
[2018-03-14] MEDS ORDERED: CEFD300C37 PO (12:46)
[2018-03-14 15:20] VITALS: BP 129/77
== END 2018-03-14 17:15 | disposition home health service (06) | DRG 189 ==
LOC: ED 20:07 → EDIP 21:41 → 3NE 22:21 → DCLOUNGE 03-14 16:59
PROVIDERS: ADMIT Internal Medicine; ATTEND Family Medicine
DX: J96.01 Acute respiratory failure with hypoxia (principal); J15.9 Unspecified bacterial pneumonia; I50.33 Acute on chronic diastolic (congestive) heart failure; I13.0 Hypertensive heart and chronic kidney disease with heart failure and stage 1 through stage 4 chronic kidney disease, or unspecified chronic kidney disease; F33.0 Major depressive disorder, recurrent, mild; N30.00 Acute cystitis without hematuria; E11.22 Type 2 diabetes mellitus with diabetic chronic kidney disease; N18.3 Chronic kidney disease, stage 3 (moderate); E11.42 Type 2 diabetes mellitus with diabetic polyneuropathy; E78.5 Hyperlipidemia, unspecified; E87.5 Hyperkalemia; I08.0 Rheumatic disorders of both mitral and aortic valves; I25.10 Atherosclerotic heart disease of native coronary artery without angina pectoris; I48.0 Paroxysmal atrial fibrillation; I48.2 Chronic atrial fibrillation; Z79.4 Long term (current) use of insulin; Z86.73 Personal history of transient ischemic attack (TIA), and cerebral infarction without residual deficits; Z95.5 Presence of coronary angioplasty implant and graft; Z96.659 Presence of unspecified artificial knee joint; Z90.49 Acquired absence of other specified parts of digestive tract; G51.0 Bell's palsy; Z79.2 Long term (current) use of antibiotics; Z79.899 Other long term (current) drug therapy
CPT/HCPCS: 36415; 71045; 80048; 80053; 81001; 82962; 83605; 83880; 84145; 84484; 85025; 87040; 87077; 87086; 87186; 93005; 93306; 94640; 96365; 96375; G0378; J0456; J0696; J1940; J7620; J1815; J7050